=== PATIENT | female | born 1995 | race Two or more races ===

== ENCOUNTER 2020-11-06 17:39 | Emergency (ER) | payer SELFPAY ==
[~2020-11-06] VITALS: Ht 170.2 cm; Wt 83.9 kg
[2020-11-06 17:40] VITALS: BP 127/81
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
[2020-11-06 18:20] VITALS: BP 127/81
--- NOTE | 2020-11-06 18:20 | NUR ---
PATIENT BIB [facility] POLICE DEPT. PATIENT EXAMINED BY DR. ROTHMAN. PATIENT MEDICALLY CLEARED AND RELEASED IN CUSTODY IN STABLE CONDITION. ORIGINAL PRE-BOOK FORM GIVEN TO OFFICER EDGAR. ALL DISCHARGE INSTRUCTIONS EXPLAINED AND PROVIDED TO PATIENT. PT VERBALLY UNDERSTOOD. COPY OF PREBOOK FORM PLACED IN CHART.
== END 2020-11-06 18:20 ==
LOC: MED 17:39
DX: S80.211A Abrasion, right knee, initial encounter (principal); Z02.89 Encounter for other administrative examinations; V49.9XXA Car occupant (driver) (passenger) injured in unspecified traffic accident, initial encounter; Y93.89 Activity, other specified; Y92.89 Other specified places as the place of occurrence of the external cause; Y99.8 Other external cause status
CPT/HCPCS: 99283